=== PATIENT | male | born 1995 | race Caucasian/White ===

== ENCOUNTER 2022-06-17 10:20 | Emergency (ER) | payer OTHER ==
[2022-06-17] MEDS ORDERED: LIDOCAINE PATCH 5% TOP STA (14:46)
[2022-06-17] MEDS ORDERED: KETOROLAC 30 MG/ML VIAL IM STA (14:46)
[2022-06-17] MEDS ORDERED: methocarbamoL 500 MG TABLET PO STA (14:46)
--- NOTE | 2022-06-17 14:46 | ED Physician Documentation ---
History of Present Illness - Stated complaint Stated Complaint: BACK PX - Chief complaint Chief Complaint: Back Pain - History obtained from History obtained from: Patient - History of Present Illness Timing: Last night - Additonal information Additional information: 26-year-old male with no reported past medical history presents for left-sided upper back pain for 1 day. Patient states that he woke up in the middle the night with pain underneath his scapula. He states that he went to bed and when he woke up it was even worse. Mildly improved with ibuprofen that he took while in the waiting room. Pain is aching, does not radiate, constant, worse with movement of his left arm. Review of Systems Ten Systems: 10 systems reviewed and negative Constitutional: denies: Fever, Chills, Myalgias Eyes: denies: Loss of vision, Decreased vision, Photophobia Ears: denies: Loss of hearing, Ear pain, Drainage/discharge Nose: denies: Rhinorrhea / runny nose, Congestion, Foreign Body Throat: denies: Dental pain / toothache, Oral lesions / sores, Sore throat Cardiac: denies: Chest pain / pressure, Palpitations, Calf pain Respiratory: denies: Dyspnea, Cough, Wheezing GI: denies: Abdominal Pain, Abdominal Swelling, Nausea, Vomiting Musculoskeletal: reports: Back pain. denies: Neck pain, Extremity pain, Joint pain, Extremity swelling PD PAST MEDICAL HISTORY - Past Medical History Past Medical History: No - Present Medications Home Medications: Ambulatory Orders Medication Instructions Recorded Confirmed Naproxen 500 mg PO TID PRN #30 tab 06/17/22 methocarbamoL [Robaxin] 500 mg PO Q6H #20 tablet 06/17/22 - Allergies Allergies/Adverse Reactions: Allergies Allergy/AdvReac Type Severity Reaction Status Date / Time No Known Drug Allergies Allergy Verified 06/17/22 10:32 PD ED PE NORMAL - Vitals Vital signs reviewed: Yes - General General: Alert and oriented X 3, No acute distress, Well developed/nourished - HEENT HEENT: Atraumatic, PERRL, EOMI, Moist mucous membranes - Neck Neck: Supple, no meningeal sign, No bony TTP, C-Spine cleared by NEXUS criteria - Cardiac Cardiac: RRR, No murmur, Strong equal pulses - Respiratory Respiratory: No respiratory distress, Clear bilaterally - Abdomen Abdomen: Soft, Non tender, Non distended - Back Back: No CVA TTP, No spinal TTP, Other (Isolated muscle spasm under L scapula) - Derm Derm: Normal color, Warm and dry, No rash - Extremities Extremities: No deformity, No tenderness to palpate, Normal ROM s pain, No edema - Neuro Neuro: Alert and oriented X 3, technical aide 2-12 intact, No motor deficit, No sensory deficit, Normal speech - Psych Psych: Normal mood, Normal affect Results - Vitals Vitals: Vital Signs - 24 hr 06/17/22 06/17/22 10:27 15:22 Temperature 36.5 C Heart Rate 87 82 Respiratory 16 14 Rate Blood Pressure 142/83 H 138/78 H O2 Saturation 100 100 Oxygen O2 Source Room air PD MEDICAL DECISION MAKING - ED course ED course: Isolated muscle spasm. Given nonnarcotic analgesia in department discharged home with NSAIDs and short course of muscle relaxers. Departure - Departure Disposition: 01 Home, Self Care Clinical Impression: Back pain, Muscle spasm Condition: Stable Instructions: Muscle Spasm, ED Spasm Muscle Prescriptions: Naproxen 500 mg PO TID PRN #30 tab PRN Reason: Pain methocarbamoL [Robaxin] 500 mg PO Q6H #20 tablet Discharge Date/Time: 06/17/22 15:23
[2022-06-17 15:23] VITALS: BP 138/78
== END 2022-06-17 15:23 | disposition home or self-care (01) ==
LOC: ED 10:20
DX: M54.6 Pain in thoracic spine (principal); M62.830 Muscle spasm of back
CPT/HCPCS: 96372; 99282; 99283; A9270